=== PATIENT | male | born 1975 | race Caucasian/White ===

== ENCOUNTER → 2019-01-31 | Outpatient (CLI) | payer OTHER ==
--- NOTE | 2019-01-31 16:15 | XR ---
EXAMINATION TYPE: XR forearm RT DATE OF EXAM: 01/31/2019 COMPARISON: None HISTORY: Contusion to forearm TECHNIQUE: 2 view right forearm FINDINGS: No acute fractures or dislocations are evident. Soft tissues appear within normal limits. Normal humerus. IMPRESSION: 1. Normal 2 view right forearm. 2. Follow up exams can be performed 7-10 days from acute trauma for continued pain.
--- NOTE | 2019-01-31 16:17 | XR ---
EXAMINATION TYPE: XR shoulder complete RT DATE OF EXAM: 01/31/2019 COMPARISON: NONE HISTORY: Pain TECHNIQUE: Shoulder examined in 3 views FINDINGS: The humeral head articulates with the glenoid. The acromio-clavicular junction is normal. There is a small calcification above the superior glenoid. A donor site for an avulsion is not identi fied. A follow up study can be performed 7-10 days from acute trauma for continued pain. IMPRESSION: 1. Small calcification superior to the glenoid could be a tiny avulsion seen on a single view. 2. If additional evaluation would be of benefit, MRI could be performed.
--- NOTE | 2019-01-31 16:18 | XR ---
EXAMINATION TYPE: XR wrist complete RT DATE OF EXAM: 01/31/2019 COMPARISON: None HISTORY: Contusion right wrist TECHNIQUE: 4 view right wrist FINDINGS: No acute fractures or dislocations are evident. Joint spaces are preserved. Soft tissues ar e normal. If there is pain at the anatomic snuff box, nuclear medicine bone scan could be performed for additio nal evaluation. Follow-up exam should be performed 7-10 days from acute trauma IMPRESSION: 1. For continued pain. Normal 4 view right wrist
== END | disposition home or self-care (01) ==
LOC: RADXRMAIN 15:50
PROVIDERS: ATTEND Emergency Medicine
DX: S50.11XA Contusion of right forearm, initial encounter (principal); S60.211A Contusion of right wrist, initial encounter; S40.011A Contusion of right shoulder, initial encounter